=== PATIENT | male | born 1980 | race Caucasian/White ===

== ENCOUNTER 2024-05-30 19:43 | Emergency (ER) | payer SELFPAY ==
[2024-05-30] VITALS (7 sets, daily range): BP systolic 157–182; BP diastolic 95–133; PULSE 85–108; RESP 16–20; TEMP 36.8; O2SAT 92–98; BMI 39.5
--- NOTE | 2024-05-30 20:01 | XRR_ITS ---
PROCEDURE INFORMATION: Exam: XR Right Ribs with PA Chest Exam date and time: 05/30/2024 8:11 PM Age: 43 years old Clinical indication: Chest wall pain; Right; Patient HX: RT lower lateral rib pain post fall TECHNIQUE: Imaging protocol: Radiologic exam of the right ribs with PA chest. Views: 3 views COMPARISON: CR XR thoracic spine 3V* [id number] 05/30/2024 8:11 PM FINDINGS: Lungs: Unremarkable. No consolidation. Pleural spaces: Unremarkable. No pleural effusion. No pneumothorax. Heart/Mediastinum: Unremarkable. No cardiomegaly. Bones/joints: Unremarkable. XR/XR ribs RT mn 3V w CXR1V [id number] IMPRESSION: No acute findings.
--- NOTE | 2024-05-30 20:03 | XRR_ITS ---
PROCEDURE INFORMATION: Exam: XR Lumbosacral Spine Exam date and time: 05/30/2024 8:11 PM Age: 43 years old Clinical indication: Lumbago; Patient HX: Upper/mid/low back pain post fall; Additional info: Fall injury TECHNIQUE: Imaging protocol: Radiologic exam of the lumbosacral spine. Views: 2 or 3 views. COMPARISON: MR lumbar spine wo con* [id number] 08/02/2018 9:04 AM FINDINGS: Bones/joints: There is mild anterior and marginal osteophyte formation throughout lumbar spine. Mild diffuse facet arthropathy. There is normal alignment lumbar spine without fracture or subluxation. Soft tissues: Unremarkable. XR/XR lumbar spine 2-3V* [id number] IMPRESSION: Mild degenerative changes. No acute bony abnormality.
--- NOTE | 2024-05-30 20:03 | XRR_ITS ---
PROCEDURE INFORMATION: Exam: XR Thoracic Spine Exam date and time: 05/30/2024 8:11 PM Age: 43 years old Clinical indication: Pain in thoracic spine; Patient HX: Upper/mid/low back pain post fall; Additional info: Fall injury TECHNIQUE: Imaging protocol: Radiologic exam of the thoracic spine. Views: 3 views. COMPARISON: CR XR thoracic spine 3V* [id number] 07/25/2018 11:14 AM FINDINGS: Bones/joints: Normal. No acute fracture. Normal alignment. Soft tissues: Unremarkable. XR/XR thoracic spine 3V* [id number] IMPRESSION: No acute findings.
--- NOTE | 2024-05-30 20:04 | ED_ITS ---
HPI - Fall General: Chief Complaint: Fall Stated Complaint: fall back/ rib injury arms Time Seen by Provider: 05/30/24 19:50 History of Present Illness: 43-year-old male patient comes in today for complaints of mid and low back pain. Patient also reports some right-sided rib pain. Patient was walking out on the road today when he slipped on the ice landing on his back. Since then patient has had some pain and discomfort in his mid and lower back. Patient denies any chronic back problems. Patient does have a history of high blood pressure but takes no medication for it at this time. Patient reports that he has been able to lose weight in the past to get better control of his blood pressure and is attempting that at this time. Patient has recently had a upper respiratory infection that he is using some herbal tea for. MD complaint: fall Onset (ago): hour(s) Fall from: standing Place fall occurred: street Loss of consciousness: None Prolonged down time: no Symptoms prior to fall: none Context: tripped/slipped Location of injury: chest and back Severity: moderate Quality: aching Related Data Previous Rx's Medication Instructions Recorded hydrocodone 5 mg-acetaminophen 325 1 tab PO Q6H PRN pain #12 tabs 05/30/24 mg tablet naproxen 500 mg tablet 500 mg PO BID #20 tabs 05/30/24 Allergies Allergy/AdvReac Type Severity Reaction Status Date / Time No Known Drug Allergies Allergy none Verified 05/30/24 19:53 Review of Systems General: Reports: 10 or more systems reviewed and unremarkable except in HPI and below Physical Exam Const: COMMON NORMALS: alert HENMT: COMMON NORMALS: normocephalic HEAD & SCALP: normocephalic Neck/C-Spine: COMMON NORMALS: full ROM Chest: COMMONS NORMALS: normal inspection of the chest CHEST: Yes tenderness (Right lateral ribs) Resp: COMMON NORMALS: normal respiratory effort Cardio: COMMON NORMALS: regular rate RATE: regular rate GI: COMMON NORMALS: non-tender Back/Pelvis: THORACIC SPINE/UPPER BACK: Yes thoracic spinal tenderness and Yes paraspinal muscle tenderness LUMBAR SPINE/LOWER BACK: Yes lumbar spinal tenderness and Yes paraspinal muscle tenderness Extremity: COMMON NORMALS: normal to inspection Neuro: SENSORIUM/ORIENTATION: Yes alert Skin: COMMON NORMALS: turgor normal GENERAL SKIN EXAM: turgor normal Course Vital Signs: Vital signs: Vital Signs Temperature 98.3 F 05/30/24 19:44 Pulse Rate 97 05/30/24 19:44 Respiratory Rate 16 05/30/24 19:44 Blood Pressure 168/95 05/30/24 19:44 Pulse Oximetry 96 05/30/24 19:44 Oxygen Delivery Me thod Room Air 05/30/24 19:44 MDM - Fall Medical Decision Making 43-year-old male patient comes in today for complaints of injury secondary to a fall after slipping on ice. Patient appears nontoxic. Patient has some pain in the mid lower back. Patient moves all extremities well. Tenderness is noted along the thoracic and the lumbar spine. Patient also has some paraspinous muscle tenderness. Patient also reports some right rib pain with no crepitus or flail chest. Differential diagnosis includes but not limited to fracture, contusion, strain. X-ray of the ribs, lumbar spine, and thoracic spine noted no fractures or acute abnormalities. Patient was given Toradol and orphenadrine with minimal relief of discomfort. Patient was then given 10 mg of hydrocodone for further pain relief. Patient be continued on naproxen and hydrocodone for his pain. Patient is recommended to follow-up with primary care in 3 to 5 days for recheck. Patient reported understanding of care plan need for follow-up or return to the ER for new concerns. Lab Data Radiology Impressions Ribs X-Ray 05/30/24 20:01 IMPRESSION: No acute findings. Lumbar Spine X-Ray 05/30/24 20:03 IMPRESSION: Mild degenerative changes. No acute bony abnormality. Thoracic Spine X-Ray 05/30/24 20:03 IMPRESSION: No acute findings. All radiology interpretation(s) finalized by discharge Discharge Plan Discharge Patient Disposition: Home Clinical Impression: Back pain due to injury, Acute chest wall pain Fall from slip, trip, or stumble Qualifiers: Encounter type: initial encounter Qualified Code(s): W01.0XXA - Fall on same level from slipping, tripping and stumbling without subsequent striking against object, initial encounter Condition: Stable Prescriptions: New naproxen 500 mg tablet 500 mg PO BID Qty: 20 0RF hydrocodone-acetaminophen 5-325 mg tablet 1 tab PO Q6H PRN (Reason: pain) Qty: 12 0RF Rx Instructions: DX: back injury Discharge Orders: Discharge ED (Routine); Ordered 05/30/24 Ordered By: Elvin Palma Referrals: Mahin De La Rosa, [employer] [Family Provider] - Discharge Diet: Usual diet Discharge Activity: Increase activity as tolerated Patient Instructions: Back Pain (ED), Opioid Safety, Pain Management Activity Restrictions/Additional Instructions: Try to maintain normal activity is much as possible. Use ice or heat to help with pain. Use naproxen routinely for pain and inflammation. You can also use Tylenol with this medication to help with your pain. Use hydrocodone for severe or uncontrolled pain. Follow-up with primary care in 3 to 5 days for recheck. Return to ED for new concerns. Coding Level of Care Code ED Marine Farmer for Anuj Villarreal
[2024-05-30] MEDS: ketorolac 30 mg/mL INJ IM (20:34)
[2024-05-30] MEDS: orphenadrine 30 mg/mL Inj 2 mL 60 MG IM (20:34)
[2024-05-30] MEDS: HYDROcodone-acetaminophen 10-325 mg Tablet 1 TAB PO (21:36)
== END 2024-05-30 21:42 | disposition home or self-care (01) ==
PROVIDERS: Emergency Provider Nurse Practitioner Family; Family Provider Nurse Practitioner
DX: R07.89 Other chest pain (principal); M54.9 Dorsalgia, unspecified; W01.0XXA Fall on same level from slipping, tripping and stumbling without subsequent striking against object, initial encounter
CPT/HCPCS: 71101; 72072; 72100; 96372; 99284; J1885; J2360